=== PATIENT | male | born 1985 ===

== ENCOUNTER 2017-09-15 22:30 | Emergency (ER) | payer SELFPAY ==
[2017-09-16 06:38] VITALS: BP 138/84
== END 2017-09-15 23:31 | disposition left against medical advice (07) ==
LOC: ED 22:30
DX: R42 Dizziness and giddiness (principal); R07.89 Other chest pain; Z53.21 Procedure and treatment not carried out due to patient leaving prior to being seen by health care provider
CPT/HCPCS: 93005; 93010